=== PATIENT | female | born 1990 | race Caucasian/White ===

== ENCOUNTER 2018-03-17 16:48 | Emergency (ER) | payer OTHER ==
--- NOTE | 2018-03-17 16:52 | PDOC ---
History of Present Illness - General Chief Complaint: Respiratory Stated Complaint: SHORT OF BREATH Time Seen by Provider: 03/17/18 16:51 - History of Present Illness Initial Comments: 03/17/18 17:12 27yo female presents ambulatory from home for eval of palpitations and chest pain. Pt states she has felt sick for a few days. States sometimes she coughs. Has felt hot and cold, but has not had a fever. No n/v/d. States trying to eat and drink, but hasn't been able to keep things down. States she was seen at [facility] yesterday and had a cxr and ct chest yesterday that were negative. States they were worried about a blood clot. States the CTA was negative for blood clots. States she did not have a flu swab. States she was dc home with albuterol and has used it twice today without relief of her pain. Pt denies leg swelling. No n/v/d. No dysuria. 03/17/18 17:14 PMHx: denies Allergies: nkda Pshx: denies Past History - Past Medical History Allergies/Adverse Reactions: Allergies Allergy/AdvReac Type Severity Reaction Status Date / Time No Known Allergies Allergy Verified 03/17/18 16:51 Home Medications: Ambulatory Orders No Home Medications 0 dose .ROUTE UTDICT 07/11/12 Albuterol Sulfate Inhaler - [Ventolin Hfa Inhaler -] 1 - 2 inh PO Q4H 03/17/18 Oseltamivir Phosphate [Tamiflu] 75 mg PO BID #10 capsule 03/17/18 - Suicide/Smoking/Psychosocial Hx Smoking Status: Yes Smoking History: Never smoked Number of Cigarettes Smoked Daily: 1 Hx Alcohol Use: No Review of Systems - Review of Systems Able to Perform ROS?: Yes Is the patient limited American proficient: No Constitutional: No: Chills, Fever HEENTM: No: Nose Congestion, Throat Pain Respiratory: Yes: Cough, Shortness of Breath Cardiac (ROS): Yes: Palpitations. No: Chest Pain, Lightheadedness ABD/GI: No: Diarrhea, Nausea, Vomiting, Abdominal cramping : No: Burning, Dysuria Neurological: No: Headache, Numbness, Paresthesia, Tingling All Other Systems: Reviewed and Negative *Physical Exam - Vital Signs 03/17/18 17:16 Selected Entries 03/17/18 16:49 Temperature 98.7 F Pulse Rate 110 H Respiratory 18 Rate Respiratory Normal Depth Respiratory Non-Labored Effort Short of Breath Blood Pressure 111/66 Blood Pressure 81 Mean O2 Sat by Pulse 100 Oximetry (%) Weight 83.915 kg - Physical Exam General Appearance: Yes: Nourished, Appropriately Dressed, Other (generally weak ) HEENT: positive: EOMI, Pharynx Normal Neck: positive: Supple Respiratory/Chest: positive: Chest Tender, Lungs Clear, Normal Breath Sounds Cardiovascular: positive: Regular Rhythm, S1, S2, Tachycardia. negative: Edema Gastrointestinal/Abdominal: positive: Normal Bowel Sounds, Soft. negative: Guarding, Rebound, Tenderness Musculoskeletal: positive: Normal Inspection Extremity: positive: Normal Capillary Refill, Normal Inspection, Normal Range of Motion. negative: Calf Tenderness Integumentary: positive: Normal Color, Dry, Warm Neurologic: positive: apprenticeship representative II-XII NML intact, Fully Oriented, Alert, Normal Mood/ Affect, Normal Response, Motor Strength 06/24 ED Treatment Course - LABORATORY CBC & Chemistry Diagram: 03/17/18 18:05 03/17/18 18:05 Medical Decision Making - Medical Decision Making 03/17/18 17:24 a/p: 27yo female with sob/rhinorrhea/cp -had a full work up yesterday at [facility] that was "negative" -did not have a flu swab -will send labs today, ekg, ivf hydration, toradol for pain -has IUD in place -will monitor, hydrate and reassess call placed to [facility]- pt gave permission to obtain records from [facility]. CTA negative for infectious etiology or PE, trop negative, bnp negative, dx with viral syndrome and dc home with flonase, albuterol, prednisone 03/17/18 17:25 *DC/Admit/Observation/Transfer Diagnosis at time of Disposition: Influenza A - Discharge Dispostion Disposition: HOME Condition at time of disposition: Good Decision to Admit order: No - Prescriptions Prescriptions: Oseltamivir Phosphate [Tamiflu] 75 mg PO BID #10 capsule - Referrals Referrals: Rick Arciniega MD [Primary Care Provider] - - Patient Instructions Printed Discharge Instructions: Influenza Additional Instructions: It is important that you stay well-hydrated make sure your drink a drink that has some sugar in it such as Gatorade or juices. Take the Tamiflu 1 tablet twice a day for 5 days. Return to the emergency department immediately with ANY new, persistent or worsening symptoms. Continue any medications as previously prescribed by your physician. You should follow up with your primary doctor as soon as possible regarding today's emergency department visit. . Please make sure your doctor reviews the results of your emergency evaluation. Thank you for coming to the Emergency Department today for your care. It was a pleasure to see you today. Please note that your evaluation is INCOMPLETE until you follow-up with your doctor. - Post Discharge Activity Forms/Work/School Notes: Back to Work, Parent(s) Back to Work Note
[2018-03-17 17:00] VITALS: BP 111/66; PULSE 110; TEMP 98.7; BMI 32.8
[2018-03-17] MEDS ORDERED: KETOROLAC TROMETHAMINE 15 MG/ML VIAL IVPUSH ONE (17:08)
[2018-03-17] MEDS ORDERED: SODIUM CHLORIDE 0.9% 1000 ML INFUS.BAG IV ONE ×2 (17:08→18:56)
[2018-03-17] MEDS ORDERED: ACETAMINOPHEN 1000 MG/100 ML VIAL (NON FORMULARY) IVPB ONE (17:32)
[2018-03-17] MEDS ORDERED: ACETAMINOPHEN INJECTION 100 ML IVPB ONE (17:40)
[2018-03-17] MEDS ORDERED: KETOROLAC TROMETHAMINE 15 MG/ML VIAL ONE (17:40)
[2018-03-17 18:18] LABS: BASO % 0.8 % (0-2.0); EOS % 0.2 % (0-4.5); HEMATOCRIT 42.5 % (32.4-45.2); HEMOGLOBIN 13.8 GM/dl (10.7-15.3); LYMPH % 20.1 % (8-40); MCH 27.2 pg (25.7-33.7); MCHC 32.4 g/dl (32.0-36.0); MEAN PLT VOLUME 7.6 fl (7.5-11.1); MONO % 8.8 % (3.8-10.2); NEUT % 70.1 % (42.8-82.8); PLATELET COUNT 258 K/MM3 (134-434); RBC 5.06 M/mm3 (3.60-5.2); RDW 11.8 % (11.6-15.6); WHITE BLOOD COUNT 3.2 K/mm3 (4.0-10.8)
[2018-03-17 18:37] LABS: ALBUMIN 3.8 g/dl (3.4-5.0); ALK PHOS 72 U/L (45-117); ANION GAP 13 MMOL/L (8-16); BILIRUBIN,TOTAL 0.8 mg/dl (0.2-1); BLOOD UREA NITROGEN 9 mg/dl (7-18); CALCIUM 9.3 mg/dl (8.5-10); CHLORIDE 100 mmol/L (98-107); CO2 18 mmol/L (21-32); GLUCOSE,RANDOM 65 mg/dl (74-106); MAGNESIUM 1.6 mg/dL (1.8-2.4); POTASSIUM 3.8 mmol/L (3.5-5.1); SGOT/AST 23 U/L (15-37); SGPT/ALT 14 U/L (13-61); SODIUM 131 mmol/L (136-145); TOT PROT 7.4 g/dl (6.4-8.2)
[2018-03-17 18:41] LABS: CREATININE < 0.6 mg/dl (0.55-1.3)
[2018-03-17] MEDS ORDERED: MAGNESIUM SULF 50% (8.12 MEQ/2 ML-1 GM VIAL) IVPB ONE (18:45)
[2018-03-17] MEDS ORDERED: MAGNESIUM 1GM/D5W - 1 GM/100 ML IVPB IVPB ONE (19:13)
[2018-03-17] MEDS ORDERED: OSELTAMIVIR PHOSPHATE 75 MG CAPSULE PO ONE (19:43)
--- NOTE | 2018-03-17 19:45 | PDOC ---
*Physical Exam - Vital Signs Last Vital Signs Temp Pulse Resp BP Pulse Ox 98.7 F 110 H 18 111/66 100 03/17/18 16:49 03/17/18 16:49 03/17/18 16:49 03/17/18 16:49 03/17/18 16:49 ED Treatment Course - LABORATORY CBC & Chemistry Diagram: 03/17/18 18:05 03/17/18 18:05 - ADDITIONAL ORDERS Additional order review: Laboratory Results 03/17/18 18:05 Sodium 131 L Potassium 3.8 Chloride 100 Carbon Dioxide 18 L Anion Gap 13 BUN 9 Creatinine < 0.6 Creat Clearance w eGFR > 60 Random Glucose 65 L Calcium 9.3 Magnesium 1.6 L Total Bilirubin 0.8 AST 23 ALT 14 Alkaline Phosphatase 72 Total Protein 7.4 Albumin 3.8 TSH 0.96 03/17/18 18:05 RBC 5.06 MCV 84.0 MCHC 32.4 RDW 11.8 MPV 7.6 Neutrophils % 70.1 Lymphocytes % 20.1 Monocytes % 8.8 Eosinophils % 0.2 Basophils % 0.8 - Medications Given in the ED: ED Medications Discontinued Medications Generic Name Dose Route Start Last Admin Trade Name Freq PRN Reason Stop Dose Admin Acetaminophen 1,000 mg 03/17/18 17:32 03/17/18 18:10 Ofirmev Injection - IVPB 03/17/18 17:33 1,000 mg ONCE ONE Administration Ketorolac Tromethamine 15 mg 03/17/18 17:08 03/17/18 18:05 Toradol Injection - IVPUSH 03/17/18 17:09 15 mg ONCE ONE Administration Magnesium Sulfate 1 gm 03/17/18 18:45 03/17/18 19:15 Magnesium Sulfate IVPB 03/17/18 18:46 1 gm ONCE ONE Administration Sodium Chloride 1,000 ml 03/17/18 17:08 03/17/18 18:05 Normal Saline - IV 03/17/18 17:09 1,000 ml ONCE ONE Administration Sodium Chloride 1,000 ml 03/17/18 18:56 03/17/18 19:15 Normal Saline - IV 03/17/18 18:57 1,000 ml ONCE ONE Administration Progress Note - Progress Note Progress Note: Care of this patient was transferred to [place] from Dr. Lopez at 1900 hrs. Patient is a 27-year-old female with viral upper respiratory tract symptoms. Secondary to her symptoms patient has had poor by mouth intake and is dehydrated. Patient was hydrated here in the emergency room able to tolerate by mouth's given some apple juice and crackers. His influenza screen is positive for influenza way so patient started on Tamiflu Patient discharged home will follow-up with her primary care doctor *DC/Admit/Observation/Transfer Diagnosis at time of Disposition: Influenza A - Discharge Dispostion Disposition: HOME Condition at time of disposition: Good Decision to Admit order: No - Referrals Referrals: Rick Arciniega MD [Primary Care Provider] - - Patient Instructions Printed Discharge Instructions: Influenza Additional Instructions: It is important that you stay well-hydrated make sure your drink a drink that has some sugar in it such as Gatorade or juices. Take the Tamiflu 1 tablet twice a day for 5 days. Return to the emergency department immediately with ANY new, persistent or worsening symptoms. Continue any medications as previously prescribed by your physician. You should follow up with your primary doctor as soon as possible regarding today's emergency department visit. . Please make sure your doctor reviews the results of your emergency evaluation. Thank you for coming to the Emergency Department today for your care. It was a pleasure to see you today. Please note that your evaluation is INCOMPLETE until you follow-up with your doctor. - Post Discharge Activity
[2018-03-17] MEDS ORDERED: OSELTAMIVIR PHOSPHATE 75 MG CAPSULE ONE (19:48)
== END 2018-03-17 20:20 | disposition home or self-care (01) ==
LOC: SUPCPDRO 16:48 → FER 16:48
PROC: 3E0337Z Introduction of Electrolytic and Water Balance Substance into Peripheral Vein, Percutaneous Approach (ICD-10-PCS; principal; 2018-03-17)
PROC: 3E033GC Introduction of Other Therapeutic Substance into Peripheral Vein, Percutaneous Approach (ICD-10-PCS; 2018-03-17)
PROC: 3E033NZ Introduction of Analgesics, Hypnotics, Sedatives into Peripheral Vein, Percutaneous Approach (ICD-10-PCS; 2018-03-17)
DX: J09.X2 Influenza due to identified novel influenza A virus with other respiratory manifestations (principal)
CPT/HCPCS: 36415; 80053; 83735; 84443; 85025; 87804; 99283-25; J0131; J7030

== ENCOUNTER 2021-12-04 07:18 | Emergency (ER) | payer OTHER ==
[2021-12-04 07:31] VITALS: BMI 33.5
[2021-12-04 08:25] LABS: BASO % 0.4 % (0-2.0); EOS % 0.6 % (0-4.5); HEMATOCRIT 40.7 % (32.4-45.2); HEMOGLOBIN 13.6 GM/dL (10.7-15.3); LYMPH % 25.2 % (8-40); MCH 27.5 pg (25.7-33.7); MCHC 33.4 g/dl (32.0-36.0); MEAN CELL VOLUME 82.2 fl (80-96); MONO % 7.6 % (3.8-10.2); NEUT % 66.2 % (42.8-82.8); PLATELET COUNT 333 10^3/uL (134-434); RBC 4.95 M/mm3 (3.60-5.2); RDW 12.9 % (11.6-15.6)
[2021-12-04 08:36] LABS: HCG,QUALITATIVE URINE Negative
[2021-12-04 08:39] LABS: EPI CELLS 15 /uL (0-25.1); HYALINE CASTS 2 /uL (0-3.1); PH,URINE 5.5 (5.0-8.0); URINE APPEARANCE CLEAR; URINE BACTERIA 67 /uL (0-1359); URINE BILIRUBIN NEGATIVE (NEGATIVE); URINE COLOR YELLOW; URINE GLUCOSE (UA) NEGATIVE (NEGATIVE); URINE KETONE TRACE (NEGATIVE); URINE LEUK ESTERASE NEGATIVE (NEGATIVE); URINE NITRITE NEGATIVE (NEGATIVE); URINE PROTEIN 2+ (NEGATIVE); URINE RBC 185 /uL (0-23.9); URINE WBC 11 /uL (0-25.8)
[2021-12-04 08:44] LABS: ALBUMIN 3.8 g/dl (3.4-5.0); BLOOD UREA NITROGEN 9.8 mg/dL (7-18); CALCIUM 9.2 mg/dL (8.5-10.1)
[2021-12-04 08:47] LABS: CREATININE 0.6 mg/dL (0.55-1.3)
[2021-12-04 08:50] LABS: BILIRUBIN,TOTAL 0.4 mg/dL (0.2-1); TOT PROT 7.5 g/dl (6.4-8.2)
[2021-12-04 08:52] LABS: ACTIVATED PTT 37.5 SECONDS (25.2-36.5); INR 1.1 (0.83-1.09); PROTHROMBIN TIME (PATIENT) 12.7 SEC (9.7-13.0)
[2021-12-04 09:31] VITALS: BP 104/70; PULSE 80; RESP 16; TEMP 97.7
== END 2021-12-04 09:31 | disposition home or self-care (01) ==
LOC: JER 07:18
DX: N93.9 Abnormal uterine and vaginal bleeding, unspecified (principal)
CPT/HCPCS: 36415; 80053; 81003; 84702; 84703; 85025; 85610; 85730; 86850; 86900; 86901; 87086; 99284-25